=== PATIENT | male | born 1995 | race Caucasian/White ===

== ENCOUNTER 2018-06-27 20:18 | Emergency (ER) | payer OTHER ==
[2018-06-27 21:25] LABS: #Basophils 0.1 thou/uL (0.0-0.2); #Eosinphils 0.1 thou/uL (0.0-0.7); #Lymphocytes 1.3 thou/uL (1.20-3.40); #Monocytes 0.6 thou/uL (0.11-0.59); #Neutrophils 6.9 thou/uL (1.40-6.50); %Basophils 1.2 % (0.0-1.0); %Eosinophils 1.4 % (0.0-10.0); %Lymphocytes 14.5 % (21.0-51.0); %Monocytes 7.1 % (0.0-10.0); %Neutrophils 75.8 % (42.0-75.0); Mean Corpuscular HGB CONC 33.9 g/dL (32.0-36.0); Mean Corpuscular Hemoglobin 29.4 pg (27.0-31.0); Mean Corpuscular Volume 86.7 fL (78.0-98.0); Mean Platelet Volume 8.2 fL (7.4-10.4); Platelet Count 195 thou/uL (130-400); RBC Distribution Width 10.7 % (11.5-14.5); Red Blood Cell (RBC) Count 5.46 mill/uL (4.70-6.10); White Blood Cell (WBC) Count 9.1 thou/uL (4.8-10.8)
[2018-06-27 21:41] LABS: ALT (SGPT) 18 U/L (8-55); AST (SGOT) 18 U/L (5-34); Albumin 4.6 g/dL (3.5-5.0); Alkaline Phosphatase 69 U/L (40-150); Anion Gap 15 mmol/L (10-20); BUN (Urea Nitrogen) 9 mg/dL (8.9-20.6); Bilirubin, Total 0.9 mg/dL (0.2-1.2); CK (CPK) 36 U/L (30-200); Calc. Creatinine Clearance 0 mL/min (70-130); Calcium 9.7 mg/dL (7.8-10.44); Carbon Dioxide 23 mmol/L (22-29); Chloride 104 mmol/L (98-107); Estimated GFR-MDRD Greater than 90; Globulin 2.8 g/dL (2.4-3.5); Glucose 98 mg/dL (70-105); Potassium 3.3 mmol/L (3.5-5.1); Protein, Total 7.4 g/dL (6.0-8.3); Sodium 139 mmol/L (136-145)
--- NOTE | 2018-06-27 21:59 | CT ---
NONCONTRAST CT ABDOMEN AND PELVIS 06/27/18 HISTORY: Acute urinary retention. COMPARISON: None available. FINDINGS: No renal or ureteral calculi are seen bilaterally. There is no evidence of hydronephrosis. The urinary bladder is distended. Lack of intravenous contrast limits evaluation of the parenchymal organs. However, the lung bases, li pankaj, spleen, pancreas, bilateral adrenal glands, and kidneys demonstrate a grossly normal nonenhanced CT appearance. The osseous structures demonstrate a normal CT appearance. Sclerotic density is seen in the right fem oral head demonstrating characteristics most compatible with a small bone island. Suggestion of trace free fluid posterior to the urinary bladder within the pelvis of uncertain etiolo gy. The appendix is visualized and normal in caliber. IMPRESSION: 1. Distention of the urinary bladder of uncertain etiology. There is a punctate calcification se en in the region of the prostate gland, but this does not appear to be centrally located and is not t hought to be related to a urethral calcification. 2. Trace amount of free fluid in the pelvis of uncertain etiology. 3. No renal or ureteral calculi are seen bilaterally. POS: MARILYN
[2018-06-27] MEDS ORDERED: Lorazepam 2 MG/ML VIAL ONE (22:19)
[2018-06-27] MEDS ORDERED: HYDROcodone/Acetaminophen 5/325 mg Tablet ONE (23:42)
[2018-06-27] MEDS ORDERED: Phenazopyridine HCl 97.5 MG TABLET ONE (23:47)
[2018-06-28 00:40] LABS: Bilirubin Negative (Negative); Blood, Urine Negative (Negative); Clarity Clear (Clear); Glucose, Urine (Dipstick) Negative (Negative); Leukocyte Negative (Negative); Nitrite Negative (Negative); Protein, Urine (Dipstick) Negative (Neg-Trace); Urobilinogen 0.2 mg/dL (0.2-1.0)
== END 2018-06-28 01:28 | disposition home or self-care (01) ==
LOC: SCSER 20:18
DX: R33.9 Retention of urine, unspecified (principal); K59.00 Constipation, unspecified; F41.9 Anxiety disorder, unspecified; F32.9 Major depressive disorder, single episode, unspecified; F98.8 Other specified behavioral and emotional disorders with onset usually occurring in childhood and adolescence; Z79.899 Other long term (current) drug therapy
CPT/HCPCS: 36415; 51702; 74176; 80053; 82550; 85025; 87086; 96374; J2060

== ENCOUNTER 2018-06-29 14:33 | Emergency (ER) | payer OTHER | END 2018-06-29 15:08 | disposition home or self-care (01) | LOC: SCSER 14:33 | DX: Z46.6 Encounter for fitting and adjustment of urinary device (principal); F41.9 Anxiety disorder, unspecified; F32.9 Major depressive disorder, single episode, unspecified; F98.8 Other specified behavioral and emotional disorders with onset usually occurring in childhood and adolescence; Z79.899 Other long term (current) drug therapy | CPT/HCPCS: 99283 ==